=== PATIENT | male | born 1965 | race Caucasian/White ===

== ENCOUNTER 2019-09-09 08:25 | Day surgery (SDC) | payer MEDICAID ==
[2019-09-03 10:56] LABS: BASOPHILS # (AUTO) 0.1 X10'3 (0-0.2); BASOPHILS % (AUTO) 0.6 % (0-1); EOSINOPHILS # (AUTO) 0.1 X10'3 (0-0.9); EOSINOPHILS % (AUTO) 1.3 % (0-6); LYMPHOCYTES # (AUTO) 3.4 X10'3 (1.1-4.8); LYMPHOCYTES % (AUTO) 35.2 % (21-51); MEAN CORPUSCULAR HEMOGLOBIN 31.1 PG (27.0-31.0); MEAN CORPUSCULAR HGB CONC 33.7 g/dL (33.0-36.5); MEAN CORPUSCULAR VOLUME 92.2 FL (78-98); MEAN PLATELET VOLUME 7.5 FL (7.4-10.4); MONOCYTES # (AUTO) 0.6 X10'3 (0-0.9); MONOCYTES % (AUTO) 6.7 % (2-12); NEUTROPHILS # (AUTO) 5.4 X10'3 (1.8-7.7); NEUTROPHILS % (AUTO) 56.2 % (42-75); PRE OP HEMATOCRIT 44.8 % (42.0-52.0); PRE OP HEMOGLOBIN 15.1 g/dL (14.0-17.9); PRE OP PLATELET COUNT 311 X10'3 (140-440); RED BLOOD COUNT 4.86 X10'6 (4.70-6.10); RED CELL DISTRIBUTION WIDTH 13.2 % (11.5-14.5)
[2019-09-03 11:25] LABS: ALBUMIN 3.3 G/DL (3.4-5.0); ALBUMIN/GLOBULIN RATIO 0.8 (1.1-1.5); ALKALINE PHOSPHATASE 93 IU/L (46-116); BLOOD UREA NITROGEN 23 MG/DL (7-18); BUN/CREATININE RATIO 24.5 (5.4-32.0); CALCIUM 9.1 MG/DL (8.5-10.1); CHLORIDE 107 MMOL/L (99-107); CREATININE 0.94 MG/DL (0.60-1.10); PRE OP ALT 30 U/L (30-65); PRE OP ANION GAP 9 (8-16); PRE OP AST 15 U/L (10-37); PRE OP BILIRUB, TOTAL 0.3 MG/DL (0.0-1.0); PRE OP GLUCOSE 114 MG/DL (70-104); PRE OP SODIUM 141 MMOL/L (135-145); TOTAL PROTEIN 7.2 G/DL (6.4-8.2); eGFR 85 ML/MIN
[~2019-09-09] VITALS: Ht 175.3 cm; Wt 136.1 kg
[~2019-09-09 08:25] MED LIST: CLOP75TA15 PO; VANCOMYCIN INJ 1000 MG in NORMAL SALINE 250ml IV.SOLN IV ONE; cefazolin/dext.iso 2gm/100ml 100 ML IV ONE; famotidine 20mg tablet PO ONE; ringers solution, lacted 1,000 ML IV SCH
[2019-09-09 08:35] VITALS: BP 114/74
[2019-09-09] MEDS ORDERED: ringers solution, lacted 1,000 ML IV SCH (09:21)
[2019-09-09] MEDS ORDERED: morphine 4 MG/ML inj SYRINge IV PRN (09:25)
[2019-09-09] MEDS ORDERED: morphine 2 MG/ML inj. syringe IV PRN (09:25)
[2019-09-09] MEDS ORDERED: meperidine/PF 25mg/ml syringe IV PRN ×3 (09:25)
[2019-09-09] MEDS ORDERED: ondansetron/PF 4mg/2ml inj IV PRN (09:25)
[2019-09-09] MEDS ORDERED: proCHLORperazine 10 MG/2 ml inj IV PRN (09:25)
[2019-09-09] MEDS ORDERED: acetaminophen 1,000mg/100ml IV 100 ML IV PRN (09:25)
[2019-09-09] MEDS ORDERED: triamcinolone acetonide 40mg/ml inj ONE (09:31)
[2019-09-09] MEDS ORDERED: BUPIVAcaine/PF 2.5 mg/ml (0.25%) 30ml vial ONE (09:31)
[2019-09-09] MEDS ORDERED: EZET1TAB23 PO (09:40)
[2019-09-09] MEDS ORDERED: sevoflurane 250ml liquid IH ONE (10:33)
[2019-09-09] MEDS ORDERED: midazolam 2 mg/2 ml injection ONE (10:35)
[2019-09-09] MEDS ORDERED: fentaNYL/PF 50MCG/1 ML 2ML syringe ONE (10:43)
[2019-09-09] MEDS ORDERED: LIDOcaine 2% (20mg/ml) 5ml vial ONE (10:54)
[2019-09-09] MEDS ORDERED: propofol inj 20 ML IV ONE (10:54)
[2019-09-09] MEDS ORDERED: ondansetron/PF 4mg/2ml inj ONE (10:55)
[2019-09-09] MEDS ORDERED: dexamethasone sod phosphate 4mg/ml inj. ONE (10:55)
[2019-09-09 11:34] VITALS: BP 156/99
--- NOTE | 2019-09-09 11:34 | NUR ---
Received from OR via , accompanied by Anesthesiologist DR DIOR and report given by Anesthesiolgist. AWAKENS TO VOICE. VITALS STABLE. DRESSING DI. ALEC PAIN.
[2019-09-09 11:44] VITALS: BP 135/90
[2019-09-09 11:54] VITALS: BP 133/95
[2019-09-09 12:04] VITALS: BP 141/91
[2019-09-09 12:14] VITALS: BP 147/90
--- NOTE | 2019-09-09 12:34 | NUR ---
AWAKE AND ORIENTED. VITALS STABLE. DRESSING DI. ALEC PAIN. HOME WITH HIS AT THIS TIME.
== END 2019-09-09 12:34 | disposition home or self-care (01) ==
LOC: PAS 08:25
PROVIDERS: ATTEND Orthopaedic Surgery
DX: S83.232A Complex tear of medial meniscus, current injury, left knee, initial encounter (principal); S83.282A Other tear of lateral meniscus, current injury, left knee, initial encounter; M94.262 Chondromalacia, left knee; M17.0 Bilateral primary osteoarthritis of knee; F41.8 Other specified anxiety disorders; E78.5 Hyperlipidemia, unspecified; E66.01 Morbid (severe) obesity due to excess calories; Z68.42 Body mass index [BMI] 45.0-49.9, adult; X58.XXXA Exposure to other specified factors, initial encounter; Y93.89 Activity, other specified; Y92.89 Other specified places as the place of occurrence of the external cause; Y99.8 Other external cause status; Z11.59 Encounter for screening for other viral diseases
CPT/HCPCS: 29873; 29879; 29880; 36415; 80053; 82948; 85025; 87635; J1100; J2001; J2250; J2405; J2704; J3010; J3301; J3370; J3490; J7120; A4215; A4618; A6250; A6449; A7000

== ENCOUNTER 2020-05-28 07:32 | Emergency (ER) | payer MEDICAID ==
[~2020-05-28] VITALS: Ht 175.3 cm; Wt 136.4 kg
[~2020-05-28 07:32] MED LIST changes: +EZET1TAB23 PO; -VANCOMYCIN INJ 1000 MG in NORMAL SALINE 250ml IV.SOLN IV ONE; -cefazolin/dext.iso 2gm/100ml 100 ML IV ONE; -famotidine 20mg tablet PO ONE; -ringers solution, lacted 1,000 ML IV SCH
[2020-05-28 07:37] VITALS: BP 170/100
--- NOTE | 2020-05-28 08:02 | NUR ---
PT STATES THAT HE WAS SPLITING WOOD A FEW DAYS AGO WHEN HE FELT A TWING IN HIS SIDE AND SINCE THEN HE HAS BEEN HAVING PAIN WITH MOVEMENT AND BREATHING LAST NIGHT HE GOT NASUATED AND VOMITED THAT MADE THE PAIN WROSE SO HE CAME IN TO THE ER TO BE EVALUATED
[2020-05-28] MEDS ORDERED: HYDROcodone/acetaminophen 10/325mg tab PO ONE (08:05)
[2020-05-28] MEDS ORDERED: ketorolac trometh inj. 60 MG/2 ML VIAL IM ONE (08:05)
[2020-05-28] MEDS ORDERED: ondansetron 4mg rapidly disintigrating tab PO ONE (08:05)
[2020-05-28] MEDS ORDERED: orphenadrine citrate 60mg/2ml inj. IM ONE (08:05)
[2020-05-28] MEDS ORDERED: ONDA4TAB6 PO (08:11)
[2020-05-28] MEDS ORDERED: HYDR-3972 PO (08:11)
[2020-05-28] MEDS ORDERED: ORPH100T2 PO (08:11)
== END 2020-05-28 08:25 | disposition home or self-care (01) ==
LOC: ER 07:32
DX: S39.011A Strain of muscle, fascia and tendon of abdomen, initial encounter (principal); Z79.899 Other long term (current) drug therapy; Z88.8 Allergy status to other drugs, medicaments and biological substances; X50.3XXA Overexertion from repetitive movements, initial encounter; X50.0XXA Overexertion from strenuous movement or load, initial encounter; Y93.89 Activity, other specified; Y92.89 Other specified places as the place of occurrence of the external cause; Y99.8 Other external cause status
CPT/HCPCS: 96372; 99284; J1885; J2360

== ENCOUNTER 2022-09-02 10:35 | Emergency (ER) | payer MEDICAID ==
[~2022-09-02] VITALS: Ht 177.8 cm; Wt 150.0 kg
[~2022-09-02 10:35] MED LIST changes: -EZET1TAB23 PO; +ONDA4TAB6 PO; +ORPH100T4 PO; +[UNRECOGNIZED DRUG - CODE] PO
[2022-09-02 11:00] LABS: BASOPHILS # (AUTO) 0.1 X10'3 (0-0.2); BASOPHILS % (AUTO) 0.6 % (0-1); EOSINOPHILS # (AUTO) 0.1 X10'3 (0-0.9); EOSINOPHILS % (AUTO) 0.7 % (0-6); HEMATOCRIT 43.8 % (42.0-52.0); HEMOGLOBIN 14.7 g/dl (14.0-17.9); LYMPHOCYTES # (AUTO) 2.7 X10'3 (1.1-4.8); MEAN CORPUSCULAR HGB CONC 33.6 g/dL (33.0-36.5); MEAN CORPUSCULAR VOLUME 92.3 FL (78-98); MEAN PLATELET VOLUME 7.6 FL (7.4-10.4); MONOCYTES # (AUTO) 0.7 X10'3 (0-0.9); MONOCYTES % (AUTO) 7.1 % (2-12); NEUTROPHILS # (AUTO) 6.5 X10'3 (1.8-7.7); NEUTROPHILS % (AUTO) 64.6 % (42-75); PLATELET COUNT 317 X10'3 (140-440); RED BLOOD COUNT 4.75 X10'6 (4.70-6.10); RED CELL DISTRIBUTION WIDTH 13.6 % (11.5-14.5); WHITE BLOOD COUNT 10.1 X10'3 (4.5-11.0)
[2022-09-02 11:12] LABS: ALANINE AMINOTRANSFERASE 21 U/L (12-78); ALBUMIN 3.4 G/DL (3.4-5.0); ALBUMIN/GLOBULIN RATIO 0.8 (1.1-1.5); ALKALINE PHOSPHATASE 113 IU/L (46-116); ANION GAP 8 (8-16); ASPARTATE AMINO TRANSFERASE 7 U/L (10-37); BILIRUBIN,TOTAL 0.2 MG/DL (0.1-1.0); BLOOD UREA NITROGEN 24 MG/DL (7-18); BUN/CREATININE RATIO 27.3 (10.0-20.0); CALCIUM 8.8 MG/DL (8.5-10.1); CHLORIDE 108 MMOL/L (99-107); CREATININE 0.88 MG/DL (0.60-1.10); GLUCOSE 125 MG/DL (70-104); POTASSIUM 3.6 MMOL/L (3.5-5.1); SODIUM 142 MMOL/L (135-145); TOTAL CARBON DIOXIDE 26.4 MMOL/L (24-32); TOTAL PROTEIN 7.7 G/DL (6.4-8.2); eGFR 90 ML/MIN
[2022-09-02 13:42] VITALS: BP 139/80
== END 2022-09-02 13:47 | disposition home or self-care (01) ==
LOC: ER 10:36
DX: R07.9 Chest pain, unspecified (principal); I51.9 Heart disease, unspecified; Z88.8 Allergy status to other drugs, medicaments and biological substances; Z79.899 Other long term (current) drug therapy
CPT/HCPCS: 36415; 71045; 80053; 83880; 84484; 85025; 93005; 99285

== ENCOUNTER 2024-05-03 06:41 | Emergency (ER) | payer MEDICAID ==
[~2024-05-03] VITALS: Ht 175.3 cm; Wt 145.4 kg
[2024-05-03 07:06] LABS: BASOPHILS # (AUTO) 0.1 X10'3 (0-0.2); BASOPHILS % (AUTO) 0.8 % (0-1); EOSINOPHILS # (AUTO) 0.1 X10'3 (0-0.9); EOSINOPHILS % (AUTO) 1.3 % (0-6); HEMATOCRIT 44.9 % (42.0-52.0); HEMOGLOBIN 15.4 g/dl (14.0-17.9); LYMPHOCYTES # (AUTO) 3.4 X10'3 (1.1-4.8); LYMPHOCYTES % (AUTO) 32.8 % (21-51); MEAN CORPUSCULAR HEMOGLOBIN 31.6 PG (27.0-31.0); MEAN CORPUSCULAR HGB CONC 34.3 g/dL (33.0-36.5); MEAN CORPUSCULAR VOLUME 92.3 FL (78-98); MEAN PLATELET VOLUME 7.5 FL (7.4-10.4); MONOCYTES # (AUTO) 0.8 X10'3 (0-0.9); MONOCYTES % (AUTO) 7.4 % (2-12); NEUTROPHILS % (AUTO) 57.7 % (42-75); PLATELET COUNT 301 X10'3 (140-440); RED BLOOD COUNT 4.86 X10'6 (4.70-6.10); RED CELL DISTRIBUTION WIDTH 13.5 % (11.5-14.5); WHITE BLOOD COUNT 10.4 X10'3 (4.5-11.0)
[2024-05-03 07:23] LABS: ALANINE AMINOTRANSFERASE 21 U/L (12-78); ALBUMIN 3.3 G/DL (3.4-5.0); ALBUMIN/GLOBULIN RATIO 0.8 (1.1-1.5); ALKALINE PHOSPHATASE 98 IU/L (46-116); ANION GAP 8 (8-16); ASPARTATE AMINO TRANSFERASE 10 U/L (10-37); BILIRUBIN,TOTAL 0.3 MG/DL (0.1-1.0); BLOOD UREA NITROGEN 19 MG/DL (7-18); BUN/CREATININE RATIO 19.6 (10.0-20.0); CALCIUM 8.6 MG/DL (8.5-10.1); CHLORIDE 106 MMOL/L (99-107); CREATININE 0.97 MG/DL (0.60-1.10); GLUCOSE 110 MG/DL (70-104); SODIUM 140 MMOL/L (135-145); TOTAL CARBON DIOXIDE 26.1 MMOL/L (24-32); TOTAL PROTEIN 7.3 G/DL (6.4-8.2); eCRCL 85 ML/MIN; eGFR 80 ML/MIN
[2024-05-03 07:31] LABS: PRO BRAIN NATRIURETIC PEPTIDE 74 PG/ML (0-125)
[2024-05-03] MEDS ORDERED: ASPI-1265 PO (09:25)
[2024-05-03] MEDS ORDERED: ATOR-411 PO (09:25)
[2024-05-03] MEDS ORDERED: CLOP-32 PO (09:25)
[2024-05-03] MEDS ORDERED: LISI20TA28 PO (09:25)
[2024-05-03 10:13] VITALS: BP 140/97; PULSE 64; RESP 16; TEMP 96.8; O2SAT 98
== END 2024-05-03 10:14 | disposition home or self-care (01) ==
LOC: ER 06:43
DX: R07.89 Other chest pain (principal); I25.2 Old myocardial infarction; I10 Essential (primary) hypertension; Z76.0 Encounter for issue of repeat prescription; Z79.82 Long term (current) use of aspirin; Z79.899 Other long term (current) drug therapy; Z98.890 Other specified postprocedural states; Z88.8 Allergy status to other drugs, medicaments and biological substances
CPT/HCPCS: 36415; 71045; 80053; 83880; 84484; 85025; 93005; 99285